=== PATIENT | female | born 1960 | race Caucasian/White ===

== ENCOUNTER → 2020-09-06 | Outpatient (CLI) | payer MEDICARE, OTHER | LOC: EMI 14:25 | DX: H81.10 Benign paroxysmal vertigo, unspecified ear (principal); R41.3 Other amnesia; F41.9 Anxiety disorder, unspecified; F32.9 Major depressive disorder, single episode, unspecified; R90.82 White matter disease, unspecified; G93.9 Disorder of brain, unspecified | CPT/HCPCS: 70553; A9577 ==